=== PATIENT | male | born 1990 | race Caucasian/White ===

== ENCOUNTER 2016-07-01 08:00 | Inpatient (IN) | payer BC, OTHER ==
[~2016-07-01] VITALS: Ht 177.8 cm; Wt 111.1 kg
[~2016-07-01 08:00] MED LIST: ASCO250T5 PO; ASPI-612 PO; DEXL60CA3 PO; FERR325T28 PO
[2016-07-21] VITALS: BP 121/75
--- NOTE | 2016-07-21 | NUR ---
Admission Note Pt is a 26 year old male admitted to [facility] on 07/20/2016 at 23:00 for Opiates, Cocaine, Marijuana Dependence. Pt is allergic to Sulfonamide Antibiotics, no history of seizures. Pt was unable to provide urine drug screen, will continue to encourage fluids throughout shift. Upon admission COWS 4, VS: 121/75, P 104, Temp 98.3, R 16, SpO2 96%, no pain rated 0/10, weight 245lbs and height 5'10". Pt does not have a primary care provider, has not been hospitalized within the past 30 days. Upon assessment, pt is alert and oriented x4, calm and cooperative, speech clear and audible, PERRLA. Breathing even and unlabored, lung sounds clear in all lobes, heart rate regular, denies SOB/chest pain. skin warm, dry and intact, no wounds/skin abrasions noted. Bowel sounds active in all quadrants, abdomen soft reported 1 bowel movement earlier today prior to arrival to [facility]. Pt denies suicidal thoughts/ideations. Pt oriented to room and encouraged to notify staff with any concerns. Educational materials provided on substance abuse, fall and seizures precautions. Pt. served time in half-way 5 times. Safety measures in place, call light within reach, bed locked and in low position. Will continue to monitor. Substance abuse history is as follows: 1. Heroin: 2 grams/daily, last intake on 07/20/2016. At this rate since 12/2015. Pt has been using heroin since 2006 2. Cocaine 8 balls QD IV , last use -07/18/2016, uses since 2006 3. Marijuana 3,5 gm QD smoking, last use 07/18/2016, uses since 2006. Pt. uses occasionally Methamphetamine 0,25gm since 2010, last use 2 weeks ago. Pt. can't give doses, but states occasionally used Xanax, Klonopin, Valium, Ativan, Metadon, Fentanyl, Oxycodone. Tx history is as follows: Pt. visited x 10 Detox/Rehab facilities last years. 1.2008 in [place] for 30 days, 2. 2011 in [facility] for 40 days and 3. July 2015, January 2016 - [facility]. Pt reports, "I'm upset at myself for relapsing". Pt is motivated to "try harder then before because I know that it worked when I was here last time". Family history is as follows: Pt's father has history of Opiate dependence. PMH: Pt has been diagnosed with GERD, Anxiety and Depression since age 20.
[2016-07-21] MEDS ORDERED: ONDANSETRON ODT 4 MG TAB.RAPDIS SL PRN (00:15)
[2016-07-21] MEDS ORDERED: IBUPROFEN 400 MG TABLET PO PRN (00:15)
[2016-07-21] MEDS ORDERED: MAGNESIUM HYDROXIDE 30 ML LIQUID UDC PO PRN (00:15)
[2016-07-21] MEDS ORDERED: PROMETHAZINE HCL 25 MG/1 ML VIAL IM PRN (00:15)
[2016-07-21] MEDS ORDERED: diphenhydrAMINE 50 MG CAPSULE PO PRN (00:15)
[2016-07-21] MEDS ORDERED: ACETAMINOPHEN 325 MG TABLET PO PRN (00:15)
[2016-07-21] MEDS ORDERED: MAG HYDROX/AL HYDROX/SIMETH 30 ML LIQUID UDC PO PRN (00:15)
[2016-07-21] MEDS ORDERED: DICYCLOMINE HCL 20 MG TABLET PO PRN (00:15)
[2016-07-21] MEDS ORDERED: LOPERAMIDE HCL 2 MG CAPSULE PO PRN ×2 (00:15)
[2016-07-21] MEDS ORDERED: MIRALAX 17 GM POWD.PACK PO PRN (00:15)
[2016-07-21] MEDS ORDERED: BUPRENORPHINE HCL 2 MG TAB.SUBL SL PRN (00:15)
[2016-07-21 01:34] LABS: ALANINE AMINOTRANSFERASE 25 U/L (16-63); ALBUMIN 3.5 g/dL (3.4-5.0); ALKALINE PHOSPHATASE 97 U/L (50-136); AMYLASE 24 U/L (25-115); ASPARTATE AMINOTRANSFERASE 22 U/L (15-37); BILIRUBIN,TOTAL 0.4 mg/dL (0.2-1.0); CALCIUM 8.4 mg/dL (8.5-10.1); CARBON DIOXIDE 32 mmol/L (21-32); CHLORIDE 102 mmol/L (98-107); GFR 90 mL/min (>60); GLUCOSE 94 mg/dL (74-106); LIPASE 70 U/L (73-393); MAGNESIUM 1.9 mg/dL (1.8-2.4); POTASSIUM 3.7 mmol/L (3.5-5.1); SODIUM SERUM 139 mmol/L (136-145); TOTAL PROTEIN, SERUM 7.4 g/dL (6.4-8.2); UREA NITROGEN, BLOOD 12 mg/dL (7-18)
[2016-07-21 01:36] LABS: BASOPHILS % (AUTO) 0.5 % (0.0-2.0); EOSINOPHILS # (AUTO) 0.2 K/uL (0.0-0.7); EOSINOPHILS % (AUTO) 2.1 % (0.0-7.0); HEMATOCRIT 34.7 % (40.0-50.0); HEMOGLOBIN 11.3 g/dL (14.0-18.0); LYMPHOCYTES # (AUTO) 2.6 K/uL (0.8-4.8); LYMPHOCYTES % (AUTO) 34.6 % (20.5-51.5); MEAN CORPUSCULAR HEMOGLOBIN 26.8 uug (27.0-31.0); MEAN CORPUSCULAR HGB CONC 33 g/dL (32.0-37.0); MEAN CORPUSCULAR VOLUME 82.1 fL (82.0-92.0); MONOCYTES # (AUTO) 0.8 K/uL (0.1-1.30); MONOCYTES % (AUTO) 10.7 % (0.0-11.0); NEUTROPHILS # (AUTO) 3.9 K/uL (1.8-8.9); NEUTROPHILS % (AUTO) 52.1 % (38.5-71.5); PLATELET COUNT (AUTO) 262 K/uL (150-450); RED BLOOD CELL COUNT(AUTO) 4.23 MIL/uL (4.70-6.10); RED CELL DISTRIBUTION WIDTH 12.3 % (11.5-14.5); WHITE BLOOD COUNT (AUTO) 7.5 K/uL (4.0-11.2)
[2016-07-21 01:37] LABS: ETHANOL < 3 MG/DL (0-0)
[2016-07-21 01:38] LABS: THYROID STIMULATING HORMONE 2.056 mIU/mL (0.358-3.740)
[2016-07-21 01:42] LABS: HIV-1 p24 ANTIGEN NON REACTIVE (NONREACTIVE); HIV-1/2 ANTIBODY NON REACTIVE (NONREACTIVE)
[2016-07-21] MEDS ORDERED: GABA600T2 PO (02:16)
[2016-07-21] MEDS ORDERED: TRAZ-147 PO (02:17)
[2016-07-21] MEDS ORDERED: CITA40TA22 PO (02:18)
[2016-07-21 04:00] VITALS: BP 100/58
--- NOTE | 2016-07-21 06:58 | NUR ---
END OF SHIFT NOTE : Pt is a 26 year old male admitted to [facility] on 07/20/2016 at 23:00 for Opiates, Marijuana Dependence. Pt is allergic to Sulfonamide Antibiotics, no history of seizures. Pt was unable to provide urine drug screen, will continue to encourage fluids throughout shift. Pt denies suicidal thoughts/ideations. Pt remains compliant with the treatment plan. Pt denies nausea, vomiting and diarrhea. No PRNs were given during my shift. V/S remain WNL. RR=16, even and unlabored, lungs clear upon auscultation, abdomen soft and non- distended. Pt denies nausea, vomiting and diarrhea. LAST COWS= 4 at 0400 , INTAKE= 1000ml, didn't voided, slept 2 hours. Safety measures in place : bed on lowest position with side rails x2 up for safety, call light within reach. Will continue to monitor closely and offer help.
--- NOTE | 2016-07-21 07:40 | NUR ---
START OF SHIFT NOTE Received report form night nurse, 26 year old male admitted to [facility] on 07/20/2016 for Opiates, Marijuana Dependence. Pt is allergic to Sulfonamide Antibiotics, no history of seizures. Pt reported PMH of GERD, Anxiety and Depression. Per endorsement pt did not receive any PRN, last COWS-4, Slept for 4 hours. Received pt in his room in stable condition. Breathing normal no SOB noted. educate the pt current plan of the day and medication regimen, with good verbal understanding. Safety measures in place, call light within reach.Will cont to monitor.
[2016-07-21 08:00] VITALS: BP 100/62
[2016-07-21] MEDS: MULTIVITAMINS,THERAPEUTIC TABLET PO SCH (10:00)
[2016-07-21] MEDS: CLONIDINE HCL 0.1 MG TABLET PO SCH ×2 (10:01→15:08)
[2016-07-21 12:00] VITALS: BP 128/74
[2016-07-21 12:15] LABS: *AMPHETAMINE, URINE NEGATIVE (NEGATIVE); *BARBITURATE, URINE POSITIVE (NEGATIVE); *CANNABINOID, URINE POSITIVE (NEGATIVE); *COCCAINE, URINE NEGATIVE (NEGATIVE); *OPIATE, URINE POSITIVE (NEGATIVE); *PHENCYCLIDINE SCREEN,URINE NEGATIVE (NEGATIVE)
[2016-07-21] MEDS: HYDROXYZINE PAMOATE 25 MG CAPSULE PO PRN (15:26)
[2016-07-21] MEDS: METHOCARBAMOL 750 MG TABLET PO PRN (15:26)
--- NOTE | 2016-07-21 15:26 | NUR ---
PRN MEDICATIONS Pt C/O of anxiety/nausea/muscle aches/x1 diarrhea PRN Zofran/Robaxin/Vistaril/Imodium was administered as ordered. Safety measures in place, Call light within reach. Will cont to monitor.
[2016-07-21 16:00] VITALS: BP 132/77
[2016-07-21] MEDS: CITALOPRAM 20 MG TABLET PO SCH (16:05)
--- NOTE | 2016-07-21 16:26 | NUR ---
REASSESSMENT Upon reassessment pt reported medication effective. Will; cont to monitor.
--- NOTE | 2016-07-21 19:38 | NUR ---
END OF SHIFT NOTE Gave report to night nurse, 26 year old male admitted for Opiates, Marijuana Dependence. Pt is allergic to Sulfonamide Antibiotics, no history of seizures. Pt remains compliant with the treatment plan. Pt denies nausea, vomiting and diarrhea. No PRNs were given during my shift. V/S. Pt denies nausea, vomiting and diarrhea. Pt received PRN medications noted to be effective. Pt's stayed in his room and rested. Educate the pt to attend groups and activities to learn new coping skills with good verbal understanding. LAST COWS-6,CIWA-4. Pt's total intake 1090ml, x2 voided, x2 BM. Safety measures in place, call light within reach. Pt endorsed to night nurse in stable condition.
[2016-07-21 20:00] VITALS: BP 115/60
--- NOTE | 2016-07-21 20:00 | NUR ---
START OF SHIFT NOTE PATIENT IS A 26 YEAR OLD MALE,ADMITTED ON 07/20/16 FOR OPIATE DEPENDENCE. PATIENT IS FULL CODE, REGULAR DIET AND ALLERGIC TO SULFONAMIDE. PATIENT REPORTS PMH OF GERD, ANXIETY AND DEPRESSION. PATIENT'S DRUG OF CHOICE ARE HEROIN 2 GRAM IV SINCE 12/2015, COCAINE 8 BALLS IV SINCE 2006, MARIJUANA 3.5 GRAM SINCE 2006, OCCASIONALLY METH SINCE 2010 , XANAX, KLONOPIN, VALIUM , ATIVAN , METHADONE , FENTANYL AND OXYCODONE. PATIENT WAS PLACED ON 5 DAYS SUBUTEX TAPER, TO BE STARTED TOMORROW. ON FALL/SEIZURE PRECAUTION. SKIN INTACT. PATIENT WAS GIVEN IMODIUM, ROBAXIN , VISTARIL AND ZOFRAN. LAST COWS 6. SAFETY MEASURES IN PLACE. PATIENT IN ROOM RESTING. PATIENT REPORTS ANXIETY, HOT/COLD SWEATS, NOTED YAWNING AND C/O GENERALIZED BODY PAIN 10/16. NO N/V/D. CALL LIGHT IN REACH. WILL CONTINUE TO MONITOR.
--- NOTE | 2016-07-21 20:20 | NUR ---
PRN ROBAXIN ADMINISTRATION PATIENT C/O GENERALIZED BODY ACHES 09/15. PRN ROBAXIN GIVEN. WILL MONITOR FOR EFFECTIVENESS. Addendum: 07/23/16 at 0217 by ABBY JONES LVN ERROR :CHARTING
[2016-07-21] MEDS ORDERED: CLONIDINE HCL 0.1 MG TABLET PO PRN (20:30)
[2016-07-22] VITALS: BP 120/61
[2016-07-22] MEDS: METHOCARBAMOL 750 MG TABLET PO PRN ×2 (00:43→20:20)
[2016-07-22] MEDS: TRAZODONE 100 MG TABLET PO PRN (00:43)
[2016-07-22] MEDS: HYDROXYZINE PAMOATE 25 MG CAPSULE PO PRN (00:43)
--- NOTE | 2016-07-22 00:43 | NUR ---
PRN DESYREL/ROBAXIN/VISTARIL ADMINISTRATION PATIENT C/O ANXIETY, UNABLE TO SLEEP, RESTLESS AND C/O GENERALIZED BODY ACHES 10/16. PRN DESYREL/ROBAXIN AND VISTARIL GIVEN. WILL MONITOR FOR EFFECTIVENESS
--- NOTE | 2016-07-22 01:45 | NUR ---
PRN DESYREL/ROBAXIN/VISTARIL RE-ASSESSMENT PATIENT IN BED WITH EYES CLOSED. NO S/S OF DISTRESS. RESPIRATION EVEN AND UNLABORED. SAFETY MEASURES IN PLACE. CALL LIGHT IN REACH. WILL CONTINUE TO MONITOR.
--- NOTE | 2016-07-22 04:00 | NUR ---
CIWA/VS PATIENT STATES HE WANTS TO SLEEP. REFUSED VS. UNABLE TO COMPLETE CIWA ASSESSMENT. RESPIRATION EVEN AND UNLABORED RR 14. SAFETY MEASURES IN PLACE. CALL LIGHT IN REACH. WILL CONTINUE TO MONITOR.
--- NOTE | 2016-07-22 07:04 | NUR ---
END OF SHIFT NOTE PATIENT IS A 26 YEAR OLD MALE,ADMITTED ON 07/20/16 FOR OPIATE DEPENDENCE. PATIENT IS FULL CODE, REGULAR DIET AND ALLERGIC TO SULFONAMIDE. PATIENT REPORTS PMH OF GERD, ANXIETY AND DEPRESSION. PATIENT'S DRUG OF CHOICE ARE HEROIN 2 GRAM IV SINCE 12/2015, COCAINE 8 BALLS IV SINCE 2006, MARIJUANA 3.5 GRAM SINCE 2006, OCCASIONALLY METH SINCE 2010 , XANAX, KLONOPIN, VALIUM , ATIVAN , METHADONE , FENTANYL AND OXYCODONE. PATIENT WAS PLACED ON 5 DAYS SUBUTEX TAPER, TO BE STARTED TODAY. ON FALL/SEIZURE PRECAUTION. SKIN INTACT. PATIENT REPORTS ANXIETY, HOT/COLD SWEATS, YAWNING AND GENERALIZED BODY PAIN 10/16. NO N/V/D. CALL LIGHT IN REACH. PATIENT IN HIS ROOM MOST OF THE SHIFT. PRN VISTARIL, ROBAXIN AND TRAZADONE GIVEN DURING SHIFT, EFFECTIVE. SAFETY MEASURES IN PLACE. WILL CONTINUE TO MONITOR. SLEPT 9 HOURS. FLUID INTAKE 651 ML. VOIDED X 1 . NO BM . LAST COWS 5.
--- NOTE | 2016-07-22 07:05 | NUR ---
Start of Shift Notes: Received patient in her room. Awake, alert and verbally responsive. Oriented x 4. Able to make his needs known. Respirations even and unlabored. No SOB noted. Skin warm and dry to touch. Abdomen soft and non-distended. No complains of N/V/D or constipation noted. (+) BS in all 4 quadrants. Bladder non-distended. No dysuria. Ambulatory ad imani with steady gait. Patient is a 26 year old male admitted for opiate, cocaine, marijuana and BZO dependence who was placed on a 5-day Subutex taper as ordered. No adverse reactions noted. Allergic to Sulfa. FULL CODE. Regular diet. On fall and seizure precautions. Educated patient on his current plan of care and his medication regimen. Encouraged oral fluid intake and encouraged group participation to learn new skills to prevent relapse. Will continue to monitor closely.
[2016-07-22 08:00] VITALS: BP 108/61
[2016-07-22] MEDS: BUPRENORPHINE HCL 2 MG TAB.SUBL SL SCH ×3 (08:13→20:22)
[2016-07-22] MEDS: MULTIVITAMINS,THERAPEUTIC TABLET PO SCH (08:13)
[2016-07-22] MEDS: CITALOPRAM 20 MG TABLET PO SCH (08:13)
[2016-07-22] MEDS ORDERED: 4 DAY TAPER BUPRENORPHINE -SERENITY PROTOCOL SL PRN (09:00)
[2016-07-22] MEDS ORDERED: TUBERCULIN,PURIF.PROT.DERIV. 5 TU/0.1 ML TEST ID ONE (09:00)
[2016-07-22 12:00] VITALS: BP 105/61
--- NOTE | 2016-07-22 12:59 | NUR ---
Additional Substance Use Hx: Patient's UDS (+) for barbiturates. Interviewed patient, per patient, he took 6 pills of unknown mg of Phernobarbital x 1 day. Last use was 2 weeks ago and only took it for 1 day.
--- NOTE | 2016-07-22 13:32 | NUR ---
MD communication Notified Dr Robles of EKG results: sinus bradycardia with sinus arrhythmia, otherwise normal ECG. QTc of 500 ms.
[2016-07-22 16:00] VITALS: BP 118/68
[2016-07-22 16:20] LABS: HCV AB <0.1 s/co ratio (0.0-0.9); HEPATITIS B CORE AB, IgM Negative (Negative); HEPATITIS B SURFACE AG Negative (Negative)
--- NOTE | 2016-07-22 18:51 | NUR ---
End of Shift Notes: Patient is a 26 year old male admitted for opiate, cocaine, and marijuana dependence who was placed on a 5-day Subutex taper as ordered that will be started today. Initial dose was given at 0900 and tolerated well. No adverse reactions noted. Has past medical hx of GERD, anxiety, depression. Allergic to SULFA. Regular diet. FULL CODE. On fall and seizure precautions. Prior to admission, patient was using2 grams of Heroin IV, 8 balls of cocaine, 3.5 grams of Marijuana, Occasional meth and BZO use. VS monitored q 4 hours. No significant abnormalities noted in the patients VS noted. COWS monitored closely. Initial COWS 9 at 0800 patient presented with fine tremors, anxiety, agitation, frequent shifting, restlessness, mild bone/joint aches, runny nose, and stomach cramps. Per patient, Subutex has been helping him with his withdrawal symptoms. Last COWS 4. Unable to participate in group due to his withdrawal symptoms. Oral fluids encouraged. Compliant with care and treatment. All needs met and attended. Will continue to monitor closely.
[2016-07-22 20:00] VITALS: BP 114/86
--- NOTE | 2016-07-22 20:00 | NUR ---
START OF SHIFT NOTE PATIENT IS A 26 YEAR OLD MALE,ADMITTED ON 07/20/16 FOR OPIATE DEPENDENCE. PATIENT IS FULL CODE, REGULAR DIET AND ALLERGIC TO SULFONAMIDE. PATIENT REPORTS PMH OF GERD, ANXIETY AND DEPRESSION. PATIENT'S DRUG OF CHOICE ARE HEROIN 2 GRAM IV SINCE 12/2015, COCAINE 8 BALLS IV SINCE 2006, MARIJUANA 3.5 GRAM SINCE 2006 , OCCASIONALLY METH SINCE 2010 0.25 GRAM , XANAX, KLONOPIN, VALIUM, ATIVAN , METHADONE, FENTANYL AND OXYCODONE. PATIENT IS ON 1ST DAY OF HIS 5 DAYS SUBUTEX TAPER. ON FALL/SEIZURE PRECAUTION. SKIN INTACT. PATIENT DID NOT REQUIRE ANY PRN MEDICATIONS DURING THE DAY. LAST COWS 4. PATIENT ALERT AND ORIENTED X 4. PATIENT IN ROOM, WATCHING TV. PATIENT REPORTS ANXIETY, RUNNY NOSE. SWEATING, STUFFY NOSE, ABDOMINAL CRAMPING, NO N/V. YAWNING . PATIENT C/O GENERALIZED BODY ACHES 5/10. PATIENT DID NOT ATTEND GROUPS TODAY, ENCOURAGED AND HE STATES THAT HE WILL TRY TOMORROW. PATIENT VERBALIZES REGARDING HIS MEDICATION GABAPENTIN AND DEXILANT. WILL FOLLOW UP WITH MD. SAFETY MEASURES IN PLACE. CALL LIGHT IN REACH. WILL CONTINUE TO MONITOR.
--- NOTE | 2016-07-22 20:20 | NUR ---
PRN ROBAXIN ADMINISTRATION PATIENT C/O GENERALIZED BODY ACHES 09/15. PRN ROBAXIN GIVEN. WILL MONITOR FOR EFFECTIVENESS.
[2016-07-22] MEDS: DEXILANT 60MG PO SCH (21:04)
[2016-07-22] MEDS: GABAPENTIN 300 MG CAPSULE PO SCH (21:05)
--- NOTE | 2016-07-22 21:20 | NUR ---
PRN ROBAXIN RE-ASSESSMENT PATIENT STATES ROBAXIN HELPFUL AND EFFECTIVE. WILL CONTINUE TO MONITOR
[2016-07-23] VITALS: BP 119/73
[2016-07-23 04:00] VITALS: BP 104/74
--- NOTE | 2016-07-23 07:09 | NUR ---
END OF SHIFT NOTE PATIENT IS A 26 YEAR OLD MALE,ADMITTED ON 07/20/16 FOR OPIATE DEPENDENCE. PATIENT IS FULL CODE, REGULAR DIET AND ALLERGIC TO SULFONAMIDE. PATIENT REPORTS PMH OF GERD, ANXIETY AND DEPRESSION. PATIENT'S DRUG OF CHOICE ARE HEROIN 2 GRAM IV SINCE 12/2015, COCAINE 8 BALLS IV SINCE 2006, MARIJUANA 3.5 GRAM SINCE 2006 , OCCASIONALLY METH SINCE 2010 0.25 GRAM , XANAX, KLONOPIN, VALIUM, ATIVAN , METHADONE, FENTANYL AND OXYCODONE. PATIENT IS ON 1ST DAY OF HIS 5 DAYS SUBUTEX TAPER, TOLERATED WELL. ON FALL/SEIZURE PRECAUTION. SKIN INTACT. PATIENT ALERT AND ORIENTED X 4. PATIENT PATIENT REPORTS ANXIETY, RUNNY NOSE. SWEATING, STUFFY NOSE, ABDOMINAL CRAMPING, NO N/V. YAWNING . PATIENT C/O GENERALIZED BODY ACHES 5/10. PATIENT WAS GIVEN PRN ROBAXIN DURING SHIFT, EFFECTIVE. PATIENT DID NOT ATTEND GROUPS TODAY, ENCOURAGED AND HE STATES THAT HE WILL TRY TOMORROW. DR. PANTOJA WAS NOTIFIED REGADING PATIENT'S NEURONTIN AND DEXILANT, BOTH MEDICATIONS WAS STARTED DURING SHIFT. PATIENT IN ROOM MOST OF THE SHIFT. SAFETY MEASURES IN PLACE. CALL LIGHT IN REACH. WILL CONTINUE TO MONITOR. SLEPT 6 HOURS. FLUID INTAKE 796 ML. VOIDED X 2 . NO BM. LAST COWS 1 .
[2016-07-23 08:00] VITALS: BP 109/64
[2016-07-23] MEDS ORDERED: BUPRENORPHINE HCL 2 MG TAB.SUBL SL SCH (09:00)
[2016-07-23] MEDS: MULTIVITAMINS,THERAPEUTIC TABLET PO SCH (09:10)
[2016-07-23] MEDS: DEXILANT 60MG PO SCH (09:10)
[2016-07-23] MEDS: CITALOPRAM 20 MG TABLET PO SCH (09:10)
[2016-07-23] MEDS: GABAPENTIN 300 MG CAPSULE PO SCH ×3 (09:10→20:55)
[2016-07-23 12:00] VITALS: BP 119/76
[2016-07-23] MEDS: BUPRENORPHINE HCL 2 MG TAB.SUBL SL SCH ×2 (14:10→20:55)
[2016-07-23 16:00] VITALS: BP 121/76
--- NOTE | 2016-07-23 18:33 | NUR ---
End of Shift Notes: Patient is a 26 year old male admitted for opiate, cocaine, and marijuana dependence who was placed on a 5-day Subutex taper as ordered that will be started today. Initial dose was given at 0900 and tolerated well. No adverse reactions noted. Has past medical hx of GERD, anxiety, depression. Allergic to SULFA. Regular diet. FULL CODE. On fall and seizure precautions. Prior to admission, patient was using2 grams of Heroin IV, 8 balls of cocaine, 3.5 grams of Marijuana, Occasional meth and BZO use. VS monitored q 4 hours. No significant abnormalities noted in the patients VS noted. COWS monitored closely. Initial COWS 5 at 0800 patient presented with anxiety, mild bone/joint aches. Per patient, Subutex has been helping him with his withdrawal symptoms. Last COWS 2. Requires encouragement to participate in group and therapy sessions. Oral fluids encouraged. Compliant with care and treatment. All needs met and attended. Will continue to monitor closely.
--- NOTE | 2016-07-23 19:30 | NUR ---
START OF SHIFT NOTE: Patient is a 26 y/o male admitted on 07/20/16 for Heroin/Cocaine/Marijuana dependence. Patient was using 2 grams of Heroin IV, 8 balls of cocaine, 3.5 grams of Marijuana, Occasional meth,Opiate & BZO use. Patient with past medical history of GERD, Anxiety, Depression. Patient is on a regular diet with allergies to Sulfonamide. Full Code status. Seizure and Fall precaution. Patient is on 5-day Subutex taper and tolerating well. Skin intact. Last COWS is 2. Pt was not given any PRN medications during day shift. Patient is alert & oriented x4. No shortness of breath noted. Respiration even & unlabored. Abdomen soft & non-distended. Bowel sounds active in all four quadrants. No nausea/vomiting noted. Patient complained of 5/10 body aches, stomach cramps, sweating & chills. No bilateral hand tremors noted. Patient denies SI/HI. Safety precautions are in place. Bed locked in lowest position. Both side rails up. Call light within pt's reach. Will continue to monitor patient.
[2016-07-23 20:00] VITALS: BP 120/70
[2016-07-23] MEDS: METHOCARBAMOL 750 MG TABLET PO PRN (20:55)
--- NOTE | 2016-07-23 20:55 | NUR ---
PRN Robaxin Patient complained of 5/10 body aches & restlessness. PRN Robaxin given as ordered. Will monitor for effectiveness of medication.
--- NOTE | 2016-07-23 21:55 | NUR ---
PRN Reassessment PRN medication effective. Patient verbalized slight relief from body aches. Patient lying in bed and appears calm with no facial grimacing noted. Will continue to monitor.
[2016-07-23] MEDS: TRAZODONE 100 MG TABLET PO PRN (23:42)
[2016-07-23] MEDS: HYDROXYZINE PAMOATE 25 MG CAPSULE PO PRN (23:42)
--- NOTE | 2016-07-23 23:42 | NUR ---
PRN Trazodone & Vistaril Patient complained of unable to go to sleep and anxiety. Pt noted to be anxious and restless. PRN Trazodone & Vistaril given as ordered. Will continue to monitor patient.
--- NOTE | 2016-07-24 01:00 | NUR ---
PRN Reassessment PRN medication effective. Patient asleep in bed at this time. Patient appears calm and comfortable. No shortness of breath noted. Respiration even & unlabored. Safety precautions are in place. Will continue to monitor.
--- NOTE | 2016-07-24 04:00 | NUR ---
Vitals/COWS deferred Patient refused vitals at this time. Patient asleep in bed. No shortness of breath noted. Respiration even & unlabored. Safety precautions are in place. Will continue to monitor.
--- NOTE | 2016-07-24 07:03 | NUR ---
END OF SHIFT NOTE: Patient is a 26 y/o male admitted on 07/20/16 for Heroin/Cocaine/Marijuana dependence. Patient was using 2 grams of Heroin IV, 8 balls of cocaine, 3.5 grams of Marijuana, Occasional meth,Opiate & BZO use. Patient with past medical history of GERD, Anxiety, Depression. Patient is on a regular diet with allergies to Sulfonamide. Full Code status. Seizure and Fall precaution. Patient is on 5-day Subutex taper and tolerating well. Skin intact. Last COWS is 5. Pt was given PRN Robaxin for body aches, Trazodone for insomnia & Vistaril for anxiety and all were effective. Patient remained compliant with therapeutic plan. Patient is stable and vitals remains WNL. Patient alert & oriented x4. No shortness of breath noted. Respiration even & unlabored. Pt still asleep at this time. Pt slept for a total of 5 hours. Pt consumed 1092ml of fluids. Voided 2x with no bowel movement. All needs attended & met. Safety precautions are in place. Will endorse pt to day shift nurse.
--- NOTE | 2016-07-24 07:27 | NUR ---
Start of Shift Note; Received report from night nurse. Patient is 26 y/o male admitted on 07/20/16 for Opiate/benzo dependence. Abdomen soft and non-distended. No complains of N/V/D or constipation noted. (+) BS in all 4 quadrants. Ambulatory ad imani with steady gait. Patient was placed on a 5-day Subutex taper as ordered. No adverse reactions noted. Noted to be Allergic to Sulfa. FULL CODE status. Regular diet. On fall and seizure precautions. Educated patient on his current plan of care and his medication regimen. Encouraged oral fluid intake and encouraged group participation to learn new skills to prevent relapse. Patient's last COWS score is 5. Will continue to monitor closely. All safety measures secured.
[2016-07-24 08:00] VITALS: BP 92/64
[2016-07-24] MEDS: CITALOPRAM 20 MG TABLET PO SCH (08:59)
[2016-07-24] MEDS: MULTIVITAMINS,THERAPEUTIC TABLET PO SCH (08:59)
[2016-07-24] MEDS: GABAPENTIN 300 MG CAPSULE PO SCH ×3 (08:59→20:58)
[2016-07-24] MEDS: BUPRENORPHINE HCL 2 MG TAB.SUBL SL SCH ×3 (09:00→21:00)
[2016-07-24] MEDS: DEXILANT 60MG PO SCH (09:00)
[2016-07-24 12:00] VITALS: BP 113/67
[2016-07-24] MEDS: DICYCLOMINE HCL 20 MG TABLET PO SCH ×2 (14:03→20:58)
[2016-07-24] MEDS: BACLOFEN 20 MG TABLET PO SCH ×2 (14:03→20:58)
[2016-07-24 16:00] VITALS: BP 119/53
--- NOTE | 2016-07-24 18:18 | NUR ---
End of shift note; Patient is AOX4. Patient is 26 y/o male admitted on 07/20/16 for Opiate/benzo dependence. Abdomen soft and non-distended. No complains of N/V/D or constipation noted. (+) BS in all 4 quadrants. Ambulatory ad imani with steady gait. Patient was placed on a 5-day Subutex taper as ordered. No adverse reactions noted. Noted to be Allergic to Sulfa. FULL CODE status. Regular diet. On fall and seizure precautions. Educated patient on his current plan of care and his medication regimen. Encouraged oral fluid intake and encouraged group participation to learn new skills to prevent relapse. Patient's last COWS score is 4. All safety measures secured. Met all needs.
--- NOTE | 2016-07-24 19:15 | NUR ---
START OF SHIFT NOTE: Patient is a 26 y/o male admitted on 07/20/16 for Heroin/Cocaine/Marijuana dependence. Patient was using 2 grams of Heroin IV, 8 balls of cocaine, 3.5 grams of Marijuana, Occasional Meth, Opiate & BZO use. Patient with past medical history of GERD, Anxiety, Depression. Patient is on a regular diet with allergies to Sulfonamide. Full Code status. Seizure and Fall precaution. Patient is on 5-day Subutex taper and tolerating well. Skin intact. Last COWS is 4. Pt was not given any PRN medications during day shift. Patient is alert & oriented x4. No shortness of breath noted. Respiration even & unlabored. Abdomen soft & non-distended. Bowel sounds active in all four quadrants. No nausea/vomiting noted. Patient complained of 5/10 body aches, stomach cramps, sweating & chills. No bilateral hand tremors noted. Patient denies SI/HI. Patient stable. Pt remained compliant with medications. Safety precautions are in place. Bed locked in lowest position. Both side rails up. Call light within pt's reach. Will continue to monitor patient.
[2016-07-24 20:00] VITALS: BP 117/60
[2016-07-24] MEDS ORDERED: BUPR-96 PO (21:26)
[2016-07-24] MEDS: TRAZODONE 100 MG TABLET PO PRN (22:21)
[2016-07-24] MEDS: HYDROXYZINE PAMOATE 25 MG CAPSULE PO PRN (22:21)
--- NOTE | 2016-07-24 22:21 | NUR ---
PRN Trazodone & Vistaril Pt complains of anxiety and insomnia. PRN Trazodone & Vistaril given as ordered. Will continue to monitor patient.
--- NOTE | 2016-07-24 23:21 | NUR ---
PRN Reassessment Patient asleep in bed at this time and appears comfortable. No shortness of breath noted. Respiration even & unlabored. Safety precautions are in place. Will continue to monitor patient.
--- NOTE | 2016-07-25 06:57 | NUR ---
END OF SHIFT NOTE: Patient is a 26 y/o male admitted on 07/20/16 for Heroin/Cocaine/Marijuana dependence. Patient was using 2 grams of Heroin IV, 8 balls of cocaine, 3.5 grams of Marijuana, Occasional meth,Opiate & BZO use. Patient with past medical history of GERD, Anxiety, Depression. Patient is on a regular diet with allergies to Sulfonamide. Full Code status. Seizure and Fall precaution. Patient is on 5-day Subutex taper and tolerating well. Skin intact. Last COWS is 5. Pt was given PRN Robaxin Trazodone for insomnia & Vistaril for anxiety and all were effective. Patient remained compliant with therapeutic plan. Patient is stable and vitals remains WNL. Patient alert & oriented x4. No shortness of breath noted. Respiration even & unlabored. Pt still asleep at this time. Pt slept for a total of 6 hours. Pt consumed 1100ml of fluids. Voided 1x with no bowel movement. All needs attended & met. Safety precautions are in place. Will endorse pt to day shift nurse.
--- NOTE | 2016-07-25 07:16 | NUR ---
Start of Shift Note; Received report from night nurse. Patient is 26 y/o male admitted on 07/20/16 for Opiate/benzo dependence. Abdomen soft and non-distended. No complains of N/V/D or constipation noted. (+) BS in all 4 quadrants. Ambulatory ad imani with steady gait. Patient was placed on a 5-day Subutex taper as ordered. No adverse reactions noted. Noted to be Allergic to Sulfa. FULL CODE status. Regular diet. On fall and seizure precautions. Educated patient on his current plan of care and his medication regimen. Encouraged oral fluid intake and encouraged group participation to learn new skills to prevent relapse. Patient's last COWS score is 4. Patient slept for 6 hours. Will continue to monitor closely. All safety measures secured.
[2016-07-25 08:00] VITALS: BP 94/62
[2016-07-25] MEDS: DEXILANT 60MG PO SCH (08:48)
[2016-07-25] MEDS: CITALOPRAM 20 MG TABLET PO SCH (08:48)
[2016-07-25] MEDS: DICYCLOMINE HCL 20 MG TABLET PO SCH ×3 (08:49→20:45)
[2016-07-25] MEDS: ASCORBIC ACID 250 MG TABLET PO SCH (08:49)
[2016-07-25] MEDS: GABAPENTIN 300 MG CAPSULE PO SCH ×3 (08:49→20:45)
[2016-07-25] MEDS: MULTIVITAMINS,THERAPEUTIC TABLET PO SCH (08:49)
[2016-07-25] MEDS: FERROUS SULFATE 325 MG TABEC PO SCH (08:49)
[2016-07-25] MEDS: BACLOFEN 20 MG TABLET PO SCH ×3 (08:49→20:45)
[2016-07-25] MEDS ORDERED: BUPRENORPHINE HCL 2 MG TAB.SUBL SL SCH (09:00)
[2016-07-25 12:00] VITALS: BP 128/74
[2016-07-25] MEDS ORDERED: IBUPROFEN 600 MG TABLET PO PRN (15:15)
[2016-07-25 16:00] VITALS: BP 104/59
--- NOTE | 2016-07-25 18:21 | NUR ---
End of shift note; Patient is AOX4. Patient is 26 y/o male admitted on 07/20/16 for Opiate/benzo dependence. Abdomen soft and non-distended. No complains of N/V/D or constipation noted. (+) BS in all 4 quadrants. Ambulatory ad imani with steady gait. Patient was placed on a 5-day Subutex taper as ordered. No adverse reactions noted. Noted to be Allergic to Sulfa. FULL CODE status. Regular diet. On fall and seizure precautions. Educated patient on his current plan of care and his medication regimen. Encouraged oral fluid intake and encouraged group participation to learn new skills to prevent relapse. Patient's last COWS score is 3. All safety measures secured. Patient remained compliant with treatment plan. Met all needs.
[2016-07-25] MEDS ORDERED: DICY20TA28 PO (19:30)
[2016-07-25] MEDS ORDERED: Ibuprofen PO (19:30)
[2016-07-25] MEDS ORDERED: HYDR-3895 PO (19:30)
[2016-07-25] MEDS ORDERED: Gabapentin PO (19:30)
[2016-07-25] MEDS ORDERED: Baclofen PO (19:30)
[2016-07-25 20:00] VITALS: BP 128/78
--- NOTE | 2016-07-25 20:00 | NUR ---
Start of Shift Pt is a 26 year old male admitted on 07/20/2016 for Opiate dependence, placed on 5 day Subutex taper, completed, pt is scheduled for discharged tomorrow. Pt reported using Heroin IV 2mg/daily, Cocaine IV 8 ball/daily, Marijuana smoke 3.5gm/daily and reported occasionally using Methamphetamine 0,25gm since 2010, last use 2 weeks ago. PMH: GERD, anxiety and depression. Pt is allergic to Sulfa, regular diet, fall/seizure precautions and full code. Upon assessment, respirations even and unlabored, denies SOB/chest pain, reports anxiety, denies n/v/d, skin warm, moist and intact, bowel sounds active x4, abdomen soft. Safety measures in place, call light within reach, side rials up x2, bed locked and in low position. Will continue to monitor.
[2016-07-25 21:04] LABS: *AMPHETAMINE, URINE NEGATIVE (NEGATIVE); *BARBITURATE, URINE POSITIVE (NEGATIVE); *CANNABINOID, URINE POSITIVE (NEGATIVE); *COCCAINE, URINE NEGATIVE (NEGATIVE); *OPIATE, URINE POSITIVE (NEGATIVE); *PHENCYCLIDINE SCREEN,URINE NEGATIVE (NEGATIVE)
[2016-07-25] MEDS: HYDROXYZINE PAMOATE 25 MG CAPSULE PO PRN (23:33)
[2016-07-25 23:34] VITALS: BP 123/68
--- NOTE | 2016-07-25 23:34 | NUR ---
PRN Administration Pt reported aches over body, skin noted to be clammy/moist, reports anxiety. Clonidine 0.1mg PRN and Vistaril 50mg PRN administered. Safety measures in place, call light within reach, side rails up x2, bed locked and in low position. Will continue to monitor.
--- NOTE | 2016-07-26 | NUR ---
Pt refused to be woken up for 0000 VS COWS assessment deferred d/t pt sleeping - to asses while pt is awake as ordered. Respirations even and unlabored, no s/s of distress noted. Safety measures in place, call light within reach, side rails up x2, bed locked and in low position. Will continue to monitor.
--- NOTE | 2016-07-26 00:35 | NUR ---
PRN Reassessment Upon reassessment of medications, pt is sleeping, no s/s of distress noted, respirations even and unlabored. Safety measures in place, call light within reach, side rails up x2 bed locked and in low position. Will continue to monitor.
--- NOTE | 2016-07-26 04:00 | NUR ---
Pt refused to be woken up for 0400 VS COWS assessment deferred d/t pt sleeping - to asses while pt is awake as ordered. Respirations even and unlabored, no s/s of distress noted. Safety measures in place, call light within reach, side rails up x2, bed locked and in low position. Will continue to monitor.
--- NOTE | 2016-07-26 07:00 | NUR ---
End of Shift Pt is a 26 year old male admitted on 07/20/2016 for Opiate dependence, placed on 5 day Subutex taper, completed, pt is scheduled for discharged today. Pt reported using Heroin IV 2mg/daily, Cocaine IV 8 ball/daily, Marijuana smoke 3.5gm/daily and reported occasionally using Methamphetamine 0,25gm since 2010, last use 2 weeks ago. PMH: GERD, anxiety and depression. Pt is allergic to Sulfa, regular diet, fall/seizure precautions and full code. Scheduled medications administered. pt presented with anxiety, PRN Vistaril 50mg and PRN Clonidine 0.1mg administered, effective. COWS 2, VS stable, pt slept for 6 hours, intake of 1153 ml PO and voids x3. Safety measures in place, call light within reach, side rails up x2, bed locked and in low position. Endorsed to day shift nurse.
--- NOTE | 2016-07-26 07:40 | NUR ---
START OF SHIFT Pt is a 26 yr old male, AA&Ox4. Pt was admitted on 07/20/16 for Opiate Dependence and has completed 5 day Subutex taper. Medication ira well. Pt is full code, regular diet and allergies to Sulfa. Pt reports of PMH of Anxiety, Depression and GERD. Pt received Vistaril PRN and Clonidine PRN during the night. Pt slept for 6 hrs. Last COWS was 2. Pt is to be discharged today to [facility]. Discharge order and UDS is complete. Pt denies any anxiety or agitation. Skin is intact, warm and dry to touch. No tremors seen or felt. Pt denies any pain or n/v. Safety precautions is observed. Call light is within reach. Will continue to monitor.
[2016-07-26 08:00] VITALS: BP 98/62
[2016-07-26] MEDS: FERROUS SULFATE 325 MG TABEC PO SCH (08:52)
[2016-07-26] MEDS: ASCORBIC ACID 250 MG TABLET PO SCH (08:52)
[2016-07-26] MEDS: DICYCLOMINE HCL 20 MG TABLET PO SCH (08:52)
[2016-07-26] MEDS: MULTIVITAMINS,THERAPEUTIC TABLET PO SCH (08:52)
[2016-07-26] MEDS: GABAPENTIN 300 MG CAPSULE PO SCH (08:52)
[2016-07-26] MEDS: DEXILANT 60MG PO SCH (08:52)
[2016-07-26] MEDS: BACLOFEN 20 MG TABLET PO SCH (08:52)
[2016-07-26] MEDS: CITALOPRAM 20 MG TABLET PO SCH (08:52)
--- NOTE | 2016-07-26 09:20 | NUR ---
DISCHARGE NOTE Pt is a 26 yr old male, AA&Ox4. Pt was admitted on 07/20/16 for Opiate Dependence and has completed 5 day Subutex taper. Medication ira well. Pt is full code, regular diet and allergies to Sulfa. Pt reports of PMH of Anxiety, Depression and GERD. Pt has been cooperative with plan of care and medication regime. Pt attended group session throughout his stay. Pt was educated on discharge summary and prescription. Pt was able to verbalize understanding. Pt was discharged on 07/26/16 at 0915 to [facility] in stable conditions. Pt left with all belongings, medications and valuables.
== END 2016-07-26 09:15 | disposition other institution (70) | DRG 895 ==
LOC: SRC 07-20 22:24
PROVIDERS: ADMIT Internal Medicine; ATTEND Internal Medicine
PROC: HZ2ZZZZ Detoxification Services for Substance Abuse Treatment (ICD-10-PCS; principal; 2016-07-20)
PROC: HZ31ZZZ Individual Counseling for Substance Abuse Treatment, Behavioral (ICD-10-PCS; 2016-07-21)
PROC: HZ41ZZZ Group Counseling for Substance Abuse Treatment, Behavioral (ICD-10-PCS; 2016-07-25)
DX: F11.23 Opioid dependence with withdrawal (principal); F33.1 Major depressive disorder, recurrent, moderate; F41.9 Anxiety disorder, unspecified; D50.9 Iron deficiency anemia, unspecified; F17.210 Nicotine dependence, cigarettes, uncomplicated; F12.90 Cannabis use, unspecified, uncomplicated
CPT/HCPCS: 36415; 70030-TC; 71010; 80307; 80345; 80349; 80361; 83690; 83735; 84443; 85025; 86580; 86592; 86705; 86803; 87340; 87806; 93005; G6040-TC; Q0162